=== PATIENT | male | born 1995 | race Caucasian/White ===

== ENCOUNTER 2017-01-02 20:57 | Emergency (ER) | payer BC ==
[2017-01-02 21:03] VITALS: RESP 16; TEMP 98.1
--- NOTE | 2017-01-02 21:11 | EDPHY ---
H & P Time Seen by Provider: 01/02/17 21:03 HPI/ROS: CHIEF COMPLAINT: "I injured my penis" HISTORY OF PRESENT ILLNESS: 21-year-old uncircumcised male arrives via private vehicle stating that approximately an hour ago during aggressive sexual activity he felt a tear and noticed bleeding at the frenulum of the prepuce of his penis. No blood from the urethral meatus. No stubbing injury. He has not urinated attempted to urinate since PHYSICAL EXAM (Prior to examination, patient consented to physical exam, hands were washed and my usual and customary physical exam procedures followed) 1) GENERAL: Well-developed, well-nourished, alert and oriented. Appears uncomfortable. 2) HEAD: Normocephalic 3) HEENT: sclera anicteric 4) LUNGS: Breathing comfortably. 5) : Uncircumcised. There is a tear and dried blood with slow bleeding at the frenulum of the prepuce of the penis on the volar aspect. There is no urethral bleeding or visible urethral abnormality. There is no asymmetry or visible abnormality to the shaft of the penis. Bilateral testicles are nontender with no signs of trauma, bilateral cremasteric reflex present and brisk. Smoking Status: Never smoked Constitutional: Initial Vital Signs Temperature (C) 36.7 C 01/02/17 21:00 Heart Rate 112 H 01/02/17 21:00 Respiratory Rate 16 01/02/17 21:00 Blood Pressure 116/73 01/02/17 21:00 O2 Sat (%) 93 01/02/17 21:00 O2 Delivery Mode Room Air Allergies/Adverse Reactions: mometasone furoate [From Nasonex] Allergy (Verified 01/02/17 21:00) Home Medications: Medication Instructions Recorded NK [No Known Home Meds] 01/02/17 MDM/Departure - MDM Medications Given: Discontinued Medications Hydrocodone Bitart/Acetaminophen ([place] 5/325mg Prepack#6) 1 btl TAKEHOME EDNOW ONE Stop: 01/02/17 22:52 Last Admin: 01/02/17 22:55 Dose: 1 btl Oxycodone/Acetaminophen (Percocet 5/325) 1 tab PO EDNOW ONE Stop: 01/02/17 21:34 Last Admin: 01/02/17 21:35 Dose: 1 tab ED Course/Re-evaluation: Patient was also seen and examined by Dr. Natanael Carbajal. Phone consultation with Dr. Fede Barron, urology, at 9:50 p.m. who informed me that no further intervention is indicated for a tear of the frenulum of the prepuce of the penis. He recommended no suturing. He was more than happy to follow up with the patient in the office. The patient was initially planning on leaving for [facility] tomorrow for 5 months. I recommended he delay this - Depart Disposition: Home, Routine, Self-Care Clinical Impression: laceration of frenulum penis Condition: Good Instructions: Hydrocodone/Acetaminophen (By mouth), Skin Tear (ED) Additional Instructions: avoid sexual intercourse and masturbation until you are healed. Return to the ER if you have difficulty or change in urinary habits. Stand Alone Forms: Airline Excuse Referrals: Cayetano Barron MD [Medical Doctor] - 1-2 days without fail
[2017-01-02] MEDS ORDERED: OXYCODONE/APAP 5/325 TAB PO ONE (21:33)
[2017-01-02] MEDS ORDERED: OXYCODONE/APAP 5/325 TAB ONE (21:33)
[2017-01-02] MEDS ORDERED: HYDROCOD/APAP 5/325 PREPACK#6 BTL TAKEHOME ONE (22:51)
[2017-01-02 23:11] VITALS: BP 101/59; PULSE 73; O2SAT 94
== END 2017-01-02 23:05 | disposition home or self-care (01) ==
DX: S31.21XA Laceration without foreign body of penis, initial encounter (principal); X58.XXXA Exposure to other specified factors, initial encounter